=== PATIENT | male | born 1995 | race Caucasian/White ===

== ENCOUNTER 2018-03-26 10:30 | Emergency (ER) | payer SELFPAY ==
--- NOTE | 2018-03-26 11:26 | EDPHY ---
General Time Seen by Provider: 03/26/18 10:55 Narrative: CHIEF COMPLAINT: Cut my finger HISTORY OF PRESENT ILLNESS: Patient presents to emergency department with complaints of left finger cut. He was cutting a bagel Monday with this aerated knife when he accidentally cut his left finger. It is at the base of the left index finger of the proximal phalanx. He reports painful movement of the finger, burning, numbness, weakness and tingling. Worse palpation movement. He irrigated the wound at home and put some Neosporin on it. He has had a dressing on it since then. No fever. No trauma elsewhere. Tetanus reportedly up-to-date. No other associated complaints or modifying factors. TIME OF INJURY: Monday TETANUS STATUS: Up-to-date MEDICAL/SURGICAL/SOCIAL HISTORY: Uncomplicated REVIEW OF SYSTEMS: Ten systems reviewed and are negative unless otherwise noted in the HPI EXAMINATION: Vitals: Triage VS reviewed General Appearance: Alert, no distress Head: normocephalic, atraumatic Cardiovascular: Symmetric radial pulses with brisk cap refill the fingers left hand. Neurological: A&O, decreased light and 2 point sensory of the dorsum of the left index finger. Strength is symmetric in the interossei and flexors. Skin: Warm and dry, no rash. 2 cm laceration to the left index finger, radial side of the proximal phalanx. No deep tissue structure injury evident. Extremities: Severe tenderness to the left index finger over the proximal phalanx laceration. There is full extension flexion of the finger without evidence of septic joint, cellulitis, abscess or tenosynovitis. DIFFERENTIAL DIAGNOSES: Including but not limited to laceration, laceration complication, laceration foreign body, laceration with deep tissue injury MDM: 10:55 a.m. Laceration to the radial side of the left index finger over the proximal phalanx. Does have decreased 2 point sensation of dorsum of the left finger. He has severe pain. No signs of infection. There is no injury overlying the flexor tendon and he has full flexion of the finger in full extension of the finger. I have anesthetize the wound we will irrigate and re-evaluate. No indication for x-ray. 12:15 p.m. Patient re-evaluated. Wound has been irrigated. Wound margins are is not distracted. There is no signs of infection superficial or deep. He does have a stated paresthesia deficits as above. His tendon exams are unremarkable. I have ordered antibiotic prophylaxis for him. He will be placed in a Xeroform and tube gauze dressing with finger splint. We discussed follow up with hand surgeon for definitive care given the delayed his presentation. We discussed ED precautions for redness, fever, warmth. He is comfortable this plan and discharged home stable condition. PROCEDURE: Digital Block Indication: Finger laceration Consent: Verbal Location: Left index finger Anesthesia: Lidocaine 1% plain, 0.25% Marcaine plain, 5mL Description: Base of the finger was prepped. The above was infused without difficulty. Tolerated well. Good anesthesia. Complications: None SUPERVISION: This patient was independently evaluated without direct involvement of or examination by the attending physician. ED Precautions: Worsening pain. Erythema, edema, cyanosis, pallor, paresthesia or anesthesia. - History History Review: I reviewed the patient's medical records Smoking Status: Current every day smoker - Objective Vital Signs: Initial Vital Signs Temperature (C) 97.9 F 03/26/18 10:35 Heart Rate 77 03/26/18 10:35 Respiratory Rate 17 03/26/18 10:35 Blood Pressure 127/75 H 03/26/18 10:35 O2 Sat (%) 95 03/26/18 10:35 O2 Delivery Mode Room Air Allergies/Adverse Reactions: No Known Allergies Allergy (Unverified 03/26/18 10:34) Home Medications: Medication Instructions Recorded Amoxicillin/Clavulanate Pot 875 mg PO BID #20 tab 03/26/18 [Augmentin 875 MG TAB (*)] Lexapro 03/26/18 Departure - Departure Disposition: Home, Routine, Self-Care Clinical Impression: Laceration of finger with delay in treatment Qualifiers: Encounter type: initial encounter Qualified Code(s): S61.219A - Laceration without foreign body of unspecified finger without damage to nail, initial encounter Condition: Good Instructions: Finger Laceration (ED), Laceration Without Closure (ED) Additional Instructions: 1. Augmentin twice daily for 7-10 days 2. follow up with hand surgeon for definitive care this week 3. ED precautions for signs of infection as discussed 4. Change dressing daily in use her splint until seen by hand surgeon Referrals: Omar Escalera MD [Medical Doctor] - As per Instructions Prescriptions: Amoxicillin/Clavulanate Pot [Augmentin 875 MG TAB (*)] 875 mg PO BID #20 tab
[2018-03-26 13:01] VITALS: BP 121/71
== END 2018-03-26 13:01 | disposition home or self-care (01) ==
PROC: 3E0T3BZ Introduction of Anesthetic Agent into Peripheral Nerves and Plexi, Percutaneous Approach (ICD-10-PCS; principal; 2018-03-26)
DX: S61.211A Laceration without foreign body of left index finger without damage to nail, initial encounter (principal); W26.0XXA Contact with knife, initial encounter; Y93.G1 Activity, food preparation and clean up; Y92.9 Unspecified place or not applicable; Y93.9 Activity, unspecified; Y99.9 Unspecified external cause status